=== PATIENT | female | born 1990 | race Caucasian/White ===

== ENCOUNTER 2023-07-07 13:37 | Outpatient (CLI) | payer OTHER, SELFPAY | END 2023-07-07 13:38 | disposition home or self-care (01) | LOC: NFLDREF 07-09 08:45 | PROVIDERS: PCP Physician Assistant Medical; Referring Provider Physician Assistant Medical; Visit Provider Physician Assistant Medical | DX: Z00.00 Encounter for general adult medical examination without abnormal findings (principal); E03.9 Hypothyroidism, unspecified; E03.8 Other specified hypothyroidism; E06.3 Autoimmune thyroiditis; Z13.6 Encounter for screening for cardiovascular disorders | CPT/HCPCS: 80053; 80061; 84443 ==

== ENCOUNTER 2024-11-29 08:51 | Outpatient (CLI) | payer OTHER, SELFPAY | END 2024-11-29 08:52 | disposition home or self-care (01) | LOC: NFLDREF 12-04 16:08 | PROVIDERS: PCP Physician Assistant Medical; Referring Provider Physician Assistant Medical; Visit Provider Physician Assistant Medical | DX: E03.8 Other specified hypothyroidism (principal); E06.3 Autoimmune thyroiditis; Z13.228 Encounter for screening for other metabolic disorders; Z13.6 Encounter for screening for cardiovascular disorders | CPT/HCPCS: 80053; 80061; 84439; 84443 ==

== ENCOUNTER 2025-05-02 14:33 | Outpatient (CLI) | payer OTHER, SELFPAY ==
[2025-05-02 22:50] LABS: Bacterial Vaginosis* Negative (Negative); Candida glab/krus NOT DETECTED (No Detected)
== END 2025-05-02 14:34 | disposition home or self-care (01) ==
LOC: FRMREF 14:46
PROVIDERS: PCP Physician Assistant Medical; Visit Provider Registered Nurse
DX: N89.8 Other specified noninflammatory disorders of vagina (principal)
CPT/HCPCS: 81513; 87481; 87661